=== PATIENT | female | born 1940 | race Caucasian/White ===

== ENCOUNTER 2016-09-23 19:21 | Emergency (ER) | payer MEDICARE ==
[2016-09-23] MEDS ORDERED: hydrALAZINE HCL 20 MG/ML VIAL ONE ×2 (19:55→21:47)
[2016-09-23 19:57] LABS: BASOPHILS 0.7 % (0.0-2.0); EOSINOPHILS 0.3 % (0.0-6.0); HEMATOCRIT 34.3 % (36.0-48.0); HEMOGLOBIN 11.3 g/dL (12.0-16.0); LYMPHOCYTES 15.3 % (20.0-40.0); LYMPHOCYTES# 0.8 X 10^3uL (0.8-3.8); MEAN CELL VOLUME 90.7 fL (80.0-100.0); MEAN PLATELET VOLUME 7.3 fL (7.4-10.4); MONOCYTES 9.5 % (2.0-10.0); MONOCYTES# 0.5 X 10^3uL (0.2-1.0); NEUTROPHILS 74.2 % (54.0-75.0); NEUTROPHILS# 4.1 X 10^3uL (2.6-6.7); PLATELET COUNT 358 X 10^3uL (130-440); RED BLOOD COUNT 3.78 X 10^6uL (4.20-6.10); RED CELL DISTRIBUTION WIDTH 13.7 % (11.5-14.5); WHITE BLOOD COUNT 5.4 X 10^3uL (3.9-10.7)
[2016-09-23 20:09] LABS: BLOOD UREA NITROGEN 21 mg/dL (7-17); CALCIUM 9.2 mg/dL (8.4-10.2); CHLORIDE 96 mmol/L (98-107); EST GLOMERULAR FILTRATION RATE > 60 mL/min; GLUCOSE 182 mg/dL (70-100); MAGNESIUM 1.7 mg/dL (1.6-2.3); POTASSIUM 3.9 mmol/L (3.5-5.1); SODIUM 138 mmol/L (137-145)
[2016-09-23 20:21] LABS: TROPONIN I < 0.012 ng/mL (0.00-0.034)
--- NOTE | 2016-09-23 20:39 | RADIOLOGY REPORT ---
HISTORY: Chest pain COMPARISON: None. FINDINGS: 1 view of the chest obtained. Mild subtle bilateral interstitial opacities are seen. Unclear whether this reflects atelectasis or subtle infiltrate. Correlate for any evidence of pneumonia. Heart size n ormal. Degenerative changes seen of the right shoulder. Reverse shoulder arthroplasty seen in the lef t. Prior ACDF of the cervical spine. Upper lumbar hardware is intimately seen. No effusion or pneumot horax. IMPRESSION: Subtle bilateral interstitial opacities, which could reflect atelectasis or pneumonia. Final Electronic Signature: This report was electronically signed by Gonzalo Rosales MD on 09/23/2016 8:37 PM. kurtis /
[2016-09-23 21:09] LABS: CREATINE KINASE 67 U/L (30-135)
[2016-09-23 21:10] LABS: C-REACTIVE PROTEIN < 5.0 mg/L (<10.0)
[2016-09-23 21:25] LABS: ERYTHROCYTE SEDIMENTATION RATE 30 MM/HR (0-20)
--- NOTE | 2016-09-23 21:49 | ER PHYSICIAN DOCUMENTATION ---
Physician Documentation [facility] Name:Carly Villa Age:76 yrs Sex:Female :1940 Arrival Date:09/23/2016 Time:19:21 Bed4 Private MD:Dionisio Mcqueen ED, John Disposition: 09/23/16 21:36 Transfer ordered to [facility]. Diagnosis are Weakness, Difficulty Walking, Malaise & Fatigue. - Reason for transfer: Specialty. - Accepting physician is Dr. Wood. - Condition is Undetermined. - Problem is new. - Symptoms are unchanged. COBRA Form completed? Yes Transfer - Mode of Transportation Ambulance HPI: 09/23 20:40 This 76 yrs old Female presents to ER via Private Vehicle with complaints of jm General Weakness, Blood Pressure Problem. 21:02 Pt here for progressive weakness over the past few days to the point where she can not jm get out of bed and do ADLs. Pt did have an episode of incontinence yesterday, but none today. Dr. Mcqueen has been following her closely and has done a recent UA, but no other findings have been noted. . Onset: The symptom(s)/episode began/occurred 3 day(s) ago, and became worse today. Severity of symptoms: in the emergency department the symptoms are unchanged. The patient has not experienced similar symptoms in the past. The patient has been recently seen by a physician: the patient's primary care provider. Pt had back surgery 07/27/16. She's been working well w PT. . Historical: - Allergies: Amitriptyline; Bactrim; Lexapro; Lyrica; Naproxen; - Home Meds: 1. hydrochlorothiazide 12.5 mg oral cap one capsule every other day on odd number days. 2. baclofen 10 mg oral tab one nightly at bedtime 3. tolterodine 2 mg oral cp24 1 cap once daily 4. oxycodone-acetaminophen 7.5-325 mg oral tab 1 tab every 4 hours as needed for pain 5. lactose-free food with fiber oral 6. Protonix 40 mg oral TbEC 1 tab once daily 7. Lipitor 20 mg oral tab 1 tab once daily at bedtime 8. Toprol XL 25 mg oral Tb24 1 tab once daily 9. folic acid 1 mg oral tab 1 tab once daily 10. metformin 500 mg oral tr24 1 tab twice daily with meals 11. Lotensin 40 mg oral tab 1 tab once daily 12. aspirin 81 mg oral tab 1 tab once daily - PMHx: HYPERLIPIDEMIA; Diabetes - IDDM; ULCERATIVE COLITIS; OVERACTIVE BLADDER; HEPATIC HEMANGIOMA; DEPRESSION; OSTEOPENIA; CERVICAL RADICULOPATHY C7; COSTOCHONDRITIS; CERVICAL STENOSIS C5-6; INSOMNIA; - PSHx: S/P LUMBAR LAMINECTOMY; - Tetanus: < 10 years. - Ebola Screening: : Patient negative for fever greater than or equal to 101.5 degrees Fahrenheit, and additional compatible Ebola Virus Disease symptoms. - Immunization history: Flu Vaccine < 1 year. - Social history: Smoking status: Patient states was never smoker of tobacco. ROS: 21:07 Constitutional: Positive for fatigue, Negative for body aches, fever. jm 21:07 ENT: Negative for rhinorrhea, sinus congestion, sinus pain, sore throat. 21:07 Cardiovascular: Negative for chest pain, palpitations. 21:07 Respiratory: Negative for cough, shortness of breath. 21:07 Abdomen/GI: Negative for abdominal pain, nausea, vomiting, diarrhea. 21:07 : Positive for bladder incontinence, Negative for hematuria, pelvic pain, flank pain, burning with urination. 21:07 Skin: Negative for rash, swelling. 21:07 Neuro: Positive for tremor, Negative for loss of consciousness. 21:07 Psych: Negative for drug dependence, alcohol dependence. 21:07 All other systems are negative. Exam: 21:36 Constitutional: The patient appears alert, awake, comfortable. 21:36 Eyes: Periorbital structures: appear normal, Conjunctiva: normal. 21:36 ENT: Mouth: is normal, Voice: is normal. 21:36 Cardiovascular: Rate: normal, Rhythm: regular. 21:36 Respiratory: Respirations: normal, Breath sounds: are normal. 21:36 Abdomen/GI: Bowel sounds: normal, Palpation: abdomen is soft and non-tender. 21:36 Back: pain, is absent, CVA tenderness, is absent. 21:36 Back: vertebral tenderness, is not appreciated. 21:36 Musculoskeletal/extremity: Sensation intact. Weight bearing: is unable to bear weight. 21:36 Neuro: Mentation: is normal, Motor: strength is 4/5 in the all extremities, Sensation: is normal, numbness, is not appreciated, tingling, is not appreciated, Gait: needs assistance, family, Deep tendon reflexes are 2+ (normal) in the right patellar and left patellar, Abnormal movements: resting tremor, is located in the right hand and left hand. 21:36 Psych: Behavior/mood is pleasant, cooperative, Affect is calm. Vital Signs: 19:25 BP 201 / 93; Pulse 88; Resp 19; Temp 97.7; Pulse Ox 92% on R/A; Weight 45.81 kg; Height rh 5 ft. 1 in. (154.94 cm); Pain 0/10; 19:55 BP 143 / 85; Pulse 82; Resp 15; Pulse Ox 94% on R/A; Pain 0/10; rh 20:30 BP 144 / 86; Pulse 78; Resp 17; Pulse Ox 95% on R/A; Pain 0/10; rh 21:06 BP 179 / 98; Pulse 86; Resp 16; Pulse Ox 94% on R/A; rh 19:25 Body Mass Index 19.08 (45.81 kg, 154.94 cm) rh MDM: 19:48 Patient medically screened. 21:38 Differential Diagnosis GB syndrome, MS, UTI, . Data reviewed: vital signs, nurses jm notes, old medical records, lab test result(s), EKG, radiologic studies, and as a result, I will *Transfer Patient. Test interpretation: by ED physician or midlevel provider: plain radiologic studies, ECG. Counseling: I had a detailed discussion with the patient and/or guardian regarding: the historical points, exam findings, and any diagnostic results supporting the discharge/admit diagnosis, lab results, radiology results, the need to transfer to another facility. ECG:. Physician consultation: Dr. Wood was called at 21:15, was contacted at 21:20, regarding patient's condition, Dr. Wood has accepted transfer . ED course: I have done a complete ED w/u for causes of generalized weakness (Pt just had a UA done in clinic which was normal). I have not found a cause for her weakness, but GB syndrome, MS, and/or other neurologic pathology comes to mind. We do not have MRI/neuro consults here, so Dr Reese and I feel she would be better served at [facility]. . 09/23 20:13 Order name: CBC AUTO DIF, MDIF/RMOR IF IND; Complete Time: 20:28 EDMS 09/23 20:14 Order name: BASIC METABOLIC PANEL; Complete Time: 20:28 EDMS 09/23 20:14 Order name: MAGNESIUM; Complete Time: 20:28 EDMS 09/23 20:22 Order name: BNP,NT-PRO; Complete Time: 20:28 EDMS 09/23 20:22 Order name: TROPONIN I; Complete Time: 20:28 EDMS 09/23 21:11 Order name: CREATINE KINASE EDMS 09/23 21:11 Order name: C-REACTIVE PROTEIN EDMS 09/23 21:26 Order name: ERYTHROCYTE SEDIMENTATION RATE EDMS 09/23 20:41 Order name: CHEST; SINGLE [place]IEW [id number]; Complete Time: 21:10 EDKS 09/23 19:37 Order name: 12-lead EKG; Complete Time: 19:52 rh 09/23 19:37 Order name: Iv Saline Lock; Complete Time: :52 rh 09/23 19:37 Order name: Place Patient On Monitor; Complete Time: 19:50 rh 09/23 19:37 Order name: Pulse Ox Continuous; Complete Time: 19:50 rh EC:38 Rhythm is regular. QRS [place] is Normal. [place] interval is normal. QT interval is normal. No jm Q waves. T waves are Normal. No ST changes noted. Dispensed Medications: 19:48 Drug: hydrALAZINE 10 mg; Route: IVP; Site: left antecubital; rh 20:43 Follow up: Response: Blood pressure is lowered rh 21:37 Drug: hydrALAZINE 10 mg; Route: IVP; Site: left antecubital; rh 21:42 Follow up: Response: Blood pressure is lowered rh Signatures: Rimma Dangelo, RN RN me1 Johny Correia MD MD jm Hofsess, Rachel rh
--- NOTE | 2016-09-23 21:49 | ER NURSING DOCUMENTATION ---
Nurse's Notes [facility] Name:Carly Villa Age:76 yrs Sex:Female :1940 Arrival Date:09/23/2016 Time:19:21 Bed4 Private MD:Dionisio Mcqueen Diagnosis:Weakness;Difficulty Walking;Malaise & Fatigue Presentation: 09/23 19:23 Acuity: MAE 2 19:52 Presenting complaint: Patient states: Pt had lumbar surgery 11 weeks ago. In the last week or so the patient has had an increase in her generalized weakness and fatigue. Today pt was sitting in the car at the parking lot of [employer] and became very hot in the car, she then began having chest discomfort, which has since stopped. Transition of care: Home. 19:52 Method Of Arrival: Private Vehicle Triage Assessment: 19:53 General: Appears in no apparent distress, Behavior is cooperative. Pain: Denies pain. rh EENT: Oral mucosa is dry. Neuro: Level of Consciousness is awake, alert, obeys commands, Oriented to person, place, time, event. Cardiovascular: Capillary refill < 3 seconds Reports fatigue, Rhythm is sinus rhythm Chest pain is denied. Respiratory: Airway is patent Respiratory effort is even, unlabored, Respiratory pattern is regular, symmetrical, Denies shortness of breath. GI: Abdomen is flat, Denies diarrhea, nausea, vomiting. : No deficits noted. Derm: Skin is intact, is healthy with good turgor, Skin is pink, warm & dry. Musculoskeletal: Swelling present in right foot and left foot Reports weakness in GENERALIZED. Historical: - Allergies: Amitriptyline; Bactrim; Lexapro; Lyrica; Naproxen; - Home Meds: 1. hydrochlorothiazide 12.5 mg oral cap one capsule every other day on odd number days. 2. baclofen 10 mg oral tab one nightly at bedtime 3. tolterodine 2 mg oral cp24 1 cap once daily 4. oxycodone-acetaminophen 7.5-325 mg oral tab 1 tab every 4 hours as needed for pain 5. lactose-free food with fiber oral 6. Protonix 40 mg oral TbEC 1 tab once daily 7. Lipitor 20 mg oral tab 1 tab once daily at bedtime 8. Toprol XL 25 mg oral Tb24 1 tab once daily 9. folic acid 1 mg oral tab 1 tab once daily 10. metformin 500 mg oral tr24 1 tab twice daily with meals 11. Lotensin 40 mg oral tab 1 tab once daily 12. aspirin 81 mg oral tab 1 tab once daily - PMHx: HYPERLIPIDEMIA; Diabetes - IDDM; ULCERATIVE COLITIS; OVERACTIVE BLADDER; HEPATIC HEMANGIOMA; DEPRESSION; OSTEOPENIA; CERVICAL RADICULOPATHY C7; COSTOCHONDRITIS; CERVICAL STENOSIS C5-6; INSOMNIA; - PSHx: S/P LUMBAR LAMINECTOMY; - Tetanus: < 10 years. - Ebola Screening: : Patient negative for fever greater than or equal to 101.5 degrees Fahrenheit, and additional compatible Ebola Virus Disease symptoms. - Immunization history: Flu Vaccine < 1 year. - Social history: Smoking status: Patient states was never smoker of tobacco. Screenin:56 Infectious Disease Risk None. Abuse screen: Denies threats or abuse. Denies injuries rh from another. Nutritional screening: No deficits noted. Assessment: 19:56 See Triage Assessment done by same RN. rh Vital Signs: 19:25 BP 201 / 93; Pulse 88; Resp 19; Temp 97.7; Pulse Ox 92% on R/A; Weight 45.81 kg; Height rh 5 ft. 1 in. (154.94 cm); Pain 0/10; 19:55 BP 143 / 85; Pulse 82; Resp 15; Pulse Ox 94% on R/A; Pain 0/10; rh 20:30 BP 144 / 86; Pulse 78; Resp 17; Pulse Ox 95% on R/A; Pain 0/10; rh 21:06 BP 179 / 98; Pulse 86; Resp 16; Pulse Ox 94% on R/A; rh 19:25 Body Mass Index 19.08 (45.81 kg, 154.94 cm) rh ED Course: 19:22 Patient arrived in ED. ma1 19:22 Dionisio Mcqueen MD is Private Physician. ma1 19:23 Triage completed. rh 19:30 Notified ED Physician of patient's arrival and chief complaint. Dr. Correia notified. rh 19:30 director industrial on. Pulse ox on. NIBP on. rh 19:34 Kandi Robertson is Primary Nurse. rh 19:45 Inserted peripheral IV: 20 gauge in left antecubital area and blood collected. rh 19:47 EKG done. (by ED staff). Reviewed by Johny Correia MD. rh 19:48 Johny Correia MD is Attending Physician. kylah 19:56 Valuables Remains with patient Patient has correct armband on for positive rh identification. Placed in gown. Bed in low position. Call light in reach. Side rails up X 1. 20:14 Kandi Robertson is Primary Nurse. rh 20:26 Port Xray Completed. mr 20:30 Assisted to bathroom. rh 21:12 Diet: Patient given regular meal. Tolerated well. rh Administered Medications: 19:48 Drug: hydrALAZINE 10 mg; Route: IVP; Site: left antecubital; rh 20:43 Follow up: Response: Blood pressure is lowered rh 21:37 Drug: hydrALAZINE 10 mg; Route: IVP; Site: left antecubital; rh 21:42 Follow up: Response: Blood pressure is lowered rh Outcome: 21:36 ER care complete, transfer ordered by . kylah 21:40 [facility] Acceptance Time: September 23, 2016 at 21:00 Patient's face sheet was faxed to accepting facility. Face Sheet included patient's name, address, age, gender, contact information and insurance information. Patient will be transported by: [facility] ground. Report called to: ATTEMPTED TO CALL REPORT, REPORT GIVEN AT 2215 to KATELIN Moreau RN, ROOM 43[address] [facility] Nurse and Physician Charting and Notes were sent to Accepting Facility. All tests and/or procedures with results, if applicable, were sent to accepting facility. 21:40 Condition: stable 21:40 Instructed on need to admit 21:48 Patient left the ED. rh Signatures: Rimma Dangelo, RN RN sc1 Johny Correia MD MD jm Hofsess, Rachel Carson, Shalonda ma1 Gonzalo Benton mr
== END 2016-09-23 21:49 | disposition short-term general hospital (02) ==
LOC: ER 19:21
DX: R53.1 Weakness (principal); R26.2 Difficulty in walking, not elsewhere classified; R53.81 Other malaise; R53.83 Other fatigue; R32 Unspecified urinary incontinence; R25.1 Tremor, unspecified; M54.5 Low back pain; Z98.890 Other specified postprocedural states; E11.9 Type 2 diabetes mellitus without complications; Z79.82 Long term (current) use of aspirin; Z79.899 Other long term (current) drug therapy; Z74.3 Need for continuous supervision
CPT/HCPCS: 71010; 80048; 82550; 83735; 83880; 84484; 85025; 85651; 86140; 93005; 93010; 96374; 96376; 99285; A0425; A0428; J0360